=== PATIENT | female | born 1945 | race Caucasian/White ===

== ENCOUNTER 2024-07-27 15:05 | Outpatient (CLI) | payer OTHER | END 2024-07-27 15:06 | disposition home or self-care (01) | LOC: MRI 15:05 | PROVIDERS: ATTEND Internal Medicine | DX: M54.17 Radiculopathy, lumbosacral region (principal); M54.2 Cervicalgia; N18.31 Chronic kidney disease, stage 3a | CPT/HCPCS: 72141; 72148 ==

== ENCOUNTER → 2024-08-02 10:25 | Outpatient (CLI) | payer OTHER ==
[2024-08-02 14:37] LABS: CREATININE SERUM 0.87 mg/dL (0.6-1.0)
[2024-08-02 15:38] LABS: CREATININE URINE 51.2 MG/DL; URINE PROT QUANT 24HR 14.2 MG/DL
[2024-08-02 16:12] LABS: URINE PROT QUANT 24 HR 202.35 MG/24HR (42-225)
[2024-08-02 18:58] LABS: CREATINE CLEARANCE 58.4 ML/MIN (97-137)
== END | disposition home or self-care (01) ==
LOC: LAB 10:25
PROVIDERS: ATTEND Internal Medicine
DX: N18.31 Chronic kidney disease, stage 3a (principal)

== ENCOUNTER 2024-08-17 09:09 | Outpatient (CLI) | payer OTHER | END 2024-08-17 09:13 | disposition home or self-care (01) | LOC: NUCLEAR 09:09 | PROVIDERS: ATTEND Obstetrics & Gynecology | DX: I65.22 Occlusion and stenosis of left carotid artery (principal); I48.20 Chronic atrial fibrillation, unspecified ==

== ENCOUNTER → 2024-08-17 | Outpatient (CLI) | payer OTHER | END | disposition home or self-care (01) | LOC: RAD 08:48 → MAMO-SONO 10:00 → RAD 08-25 13:41 | PROVIDERS: ATTEND Internal Medicine | DX: N60.11 Diffuse cystic mastopathy of right breast (principal); Z12.31 Encounter for screening mammogram for malignant neoplasm of breast ==

== ENCOUNTER 2024-09-21 12:38 | Outpatient (CLI) | payer OTHER | END 2024-09-21 12:47 | disposition home or self-care (01) | LOC: TOM 12:38 | PROVIDERS: ATTEND Otolaryngology | DX: R42 Dizziness and giddiness (principal); J30.9 Allergic rhinitis, unspecified; R13.10 Dysphagia, unspecified; J06.0 Acute laryngopharyngitis; R05.9 Cough, unspecified ==

== ENCOUNTER 2024-11-16 07:03 | Outpatient (CLI) | payer OTHER | END 2024-11-16 07:04 | disposition home or self-care (01) | LOC: NUCLEAR 07:03 | PROVIDERS: ATTEND Internal Medicine Cardiovascular Disease | DX: I11.9 Hypertensive heart disease without heart failure (principal) | CPT/HCPCS: 78452; 93017; A9500; J0153 ==

== ENCOUNTER 2025-06-15 07:06 | Outpatient (CLI) | payer OTHER | END 2025-06-15 07:07 | disposition home or self-care (01) | LOC: NUCLEAR 07:06 | PROVIDERS: ATTEND Internal Medicine | DX: E11.43 Type 2 diabetes mellitus with diabetic autonomic (poly)neuropathy (principal) | CPT/HCPCS: 78264; A9541 ==